=== PATIENT | male | born 1985 | race Caucasian/White ===

== ENCOUNTER 2017-09-29 10:05 | Emergency (ER) | payer OTHER ==
[2017-09-29 11:05] VITALS: BP 121/57
--- NOTE | 2017-09-29 11:57 | UC ---
"Skin Complaint HPI - HPI Summary HPI Summary: Patient developed 3 small red lesions on the upper shaft of the penis, noticed them 2 days ago, they itch, no pain, - History of Current Complaint Chief Complaint: UCSkin Time Seen by Provider: 09/29/17 11:19 Stated Complaint: PERSONAL Hx Obtained From: Patient Onset/Duration: Sudden Onset, Lasting Days Skin Exposure Onset/Duration: Days Ago Timing: Constant Onset Severity: Mild Current Severity: Mild Pain Intensity: 0 Location: Discrete Character: Pruritus, Redness Aggravating Factor(s): Humidity Alleviating Factor(s): Nothing - Allergy/Home Medications Allergies/Adverse Reactions: Allergies Allergy/AdvReac Type Severity Reaction Status Date / Time No Known Allergies Allergy Verified 09/29/17 11:01 Home Medications: Home Medications Naproxen Sodium [Naproxen Sodium 500 MG TAB] 500 mg PO BID PRN 09/29/17 [ History Confirmed 09/29/17] Review of Systems Constitutional: Negative Skin: Other - 3 red bumps Eyes: Negative ENT: Negative Respiratory: Negative Cardiovascular: Negative Gastrointestinal: Negative Genitourinary: Negative, Vaginal/Penile Itching Motor: Negative Neurovascular: Negative Musculoskeletal: Negative Neurological: Negative Psychological: Negative Is Patient Immunocompromised?: No All Other Systems Reviewed And Are Negative: Yes PMH/Surg Hx/FS Hx/Imm Hx Previously Healthy: Yes GI/ History: Other - chlymidia Other GI/ History: STD| - Surgical History Surgical History: None - Family History Known Family History: Positive: Unknown Negative: Cardiac Disease, Hypertension - Social History Alcohol Use: Rare Substance Use Type: None Smoking Status (MU): Current Every Day Smoker Type: Smokeless Tobacco Amount Used/How Often: 1 can daily Physical Exam Triage Information Reviewed: Yes Appearance: Well-Appearing, Well-Nourished, Pain Distress Vital Signs: Initial Vital Signs Temp 99.3 F 09/29/17 11:01 Pulse 71 09/29/17 11:01 Resp 18 09/29/17 11:01 BP 121/57 09/29/17 11:01 Pulse Ox 100 09/29/17 11:01 Eye Exam: Normal ENT Exam: Normal Dental Exam: Normal Neck exam: Normal Respiratory Exam: Normal Cardiovascular Exam: Normal Abdominal Exam: Normal Bowel Sounds: Positive: Present Musculoskeletal Exam: Normal Neurological Exam: Normal Psychological Exam: Normal Skin: Positive: Other - 3 small red bumps on shaft of penis, 2 are scabbed from patient itching, one appears as a folliculitis Course/Dx - Course Course Of Treatment: patient has hx of STD, but denies herpes, lesions are not listered, appear to be ingrown hairs, prescribed bactroban to applie to the area , partner has had yeast infections, but no dysuria noted, educated on hygiene and STD. - Differential Diagnoses - Skin Complaint Differential Diagnoses: Abscess, Eczema, Urticaria, Other - herpes, folliculitis - Diagnoses Provider Diagnoses: folliculitis Discharge - Discharge Plan Condition: Stable Disposition: HOME Patient Education Materials: Folliculitis (ED) Referrals: No Primary Care Phys,NOPCP [Primary Care Provider] - Additional Instructions: 1. Clean the area twice a day, use the medication as prescribed. 2. Refrain from intercourse till clear 3. follow up if worsening."
== END 2017-09-29 12:07 | disposition home or self-care (01) ==
LOC: UCCORT 10:05
DX: N48.89 Other specified disorders of penis (principal); Z86.19 Personal history of other infectious and parasitic diseases; F17.220 Nicotine dependence, chewing tobacco, uncomplicated
CPT/HCPCS: 99212; G0463